=== PATIENT | female | born 1990 | race Caucasian/White ===

== ENCOUNTER 2017-07-25 12:09 | Emergency (ER) | payer MEDICAID ==
[~2017-07-25] VITALS: Ht 157.5 cm; Wt 79.8 kg
[2017-07-25 16:46] LABS: CALCIUM 8.1 mg/dL (8.5-10.1); CARBON DIOXIDE 24.2 mmol/L (21-32); CHLORIDE SERUM 106 mmol/L (98-107); CREATININE SERUM 0.7 mg/dL (0.6-1.0); GFR1 > 60 mL/min; GLUCOSE SERUM 115 mg/dL (74-106); POTASSIUM SERUM 4.4 mmol/L (3.5-5.1); SODIUM SERUM 139 mmol/L (136-145)
[2017-07-25 16:48] LABS: BASOPHIL % 0.2 % (0-2); PLATELET COUNT 293 x10^3mcL (130-400); RED CELL DISTRIBUTION WIDTH 16.1 % (11.5-14.5)
[2017-07-25 16:54] VITALS: BP 122/77
[2017-07-26 09:57] VITALS: BP 134/80
== END 2017-07-26 10:48 | disposition home or self-care (01) ==
LOC: ED 12:09
PROVIDERS: Family Medicine
DX: J45.901 Unspecified asthma with (acute) exacerbation (principal); L30.9 Dermatitis, unspecified; J30.2 Other seasonal allergic rhinitis; F17.210 Nicotine dependence, cigarettes, uncomplicated
CPT/HCPCS: 83880; 99406; J2930; J3475; J7030; J7613; J7620; J7644